=== PATIENT | male | born 1965 | race Caucasian/White ===

== ENCOUNTER 2021-01-13 08:51 | Observation (INO) | payer MEDICARE ==
[2021-01-13 09:15] VITALS: BMI 32.1
[2021-01-13] MEDS ORDERED: FLU VACC QS2021-22(6MOS UP)/PF 60 MCG/0.5 ML SYRINGE IM ONE (10:15)
[2021-01-13] MEDS ORDERED: hydrALAZINE 20 MG/ML VIAL SLOW IVP PRN (10:28)
[2021-01-13] MEDS ORDERED: Labetalol HCl 100 MG/20 ML VIAL SLOW IVP PRN (10:28)
[2021-01-13] MEDS ORDERED: Ondansetron ODT 4 MG TAB PO PRN (10:31)
[2021-01-13] MEDS ORDERED: HumaLOG 300 UNITS/3 ML VIAL SC PRN (10:31)
[2021-01-13] MEDS ORDERED: Dextrose 50% Abboject 50 ML SYRINGE SLOW IVP PRN (10:31)
[2021-01-13] MEDS ORDERED: Acetaminophen 325 MG TAB PO PRN (10:31)
[2021-01-13] MEDS ORDERED: Senokot S 8.6-50 MG TAB PO PRN (10:31)
[2021-01-13] MEDS ORDERED: Dextrose 5% in Water 1,000 ML IV PRN (10:31)
[2021-01-13] MEDS ORDERED: Aspirin 81 mg Enteric Coated Tablet PO SCH (10:45)
[2021-01-13 11:20] LABS: Amphetamine Not Detected (NotDetected); Barbiturates Screen Not Detected (NotDetected); Benzodiazepine Screen Not Detected (NotDetected); Cocaine Metabolite Screen Not Detected (NotDetected); Methadone Not Detected (NotDetected); Methamphetamine Not Detected (NotDetected); Opiate Screen Detected (NotDetected); Oxycodone Screen Not Detected (NotDetected); Phencyclidine (PCP) Not Detected (NotDetected); THC/Cannabinoid Screen Not Detected (NotDetected); Tricyclic Screen Not Detected (NotDetected)
[2021-01-13] MEDS: HumaLOG 300 UNITS/3 ML VIAL SC PRN ×2 (12:24→17:02)
[2021-01-13] MEDS ORDERED: Clopidogrel Bisulfate 300 MG TAB PO SCH (12:45)
[2021-01-13] MEDS: Famotidine 20 MG TAB PO SCH (19:49)
[2021-01-14 06:16] LABS: Anion Gap 11 mmol/L (10-20); BUN (Urea Nitrogen) 20 mg/dL (8.4-25.7); Calc. Creatinine Clearance 64 mL/min (70-130); Calcium 9.3 mg/dL (7.8-10.44); Carbon Dioxide 23 mmol/L (22-29); Cardiac Risk 4.1 (Less than 4.5); Chloride 109 mmol/L (98-107); Cholesterol 148 mg/dl (< 200 Desired); Glucose 210 mg/dL (70-105); HDL Cholesterol 36 mg/dL (>60 Neg Risk); LDL Cholesterol, Calculated 67 mg/dL; Magnesium 2.1 mg/dL (1.6-2.6); Potassium 4.6 mmol/L (3.5-5.1); Sodium 138 mmol/L (136-145); Triglycerides 224 mg/dL (Less than 150)
[2021-01-14 06:20] LABS: #Basophils 0.1 10x3/uL (0.0-0.2); #Eosinphils 0.3 10x3/uL (0.0-0.5); #Monocytes 0.5 10x3/uL (0.0-1.1); #Neutrophils 2.9 10x3/uL (1.5-8.4); %Basophils 1.2 % (0.0-2.0); %Lymphocytes 33.4 % (18.0-47.0); %Monocytes 9.1 % (0.0-10.0); %Neutrophils 50.9 % (40.0-75.0); Hemoglobin 12.5 g/dL (13.5-17.5); Mean Corpuscular HGB CONC 34.1 g/dL (32.0-36.0); Mean Corpuscular Hemoglobin 28.2 pg (27.0-33.0); Mean Corpuscular Volume 82.8 fl (81.2-95.1); Mean Platelet Volume 9.8 fl (7.4-10.4); Platelet Count 262 10x3/uL (150-450); Red Blood Cell (RBC) Count 4.43 10x6/uL (4.32-5.72); White Blood Cell (WBC) Count 5.6 10x3/uL (3.5-10.5)
[2021-01-14 06:25] VITALS: TEMP 97
[2021-01-14 06:43] LABS: Thyroid Stimulating Hormone 1.046 uIU/mL (0.35-4.94)
[2021-01-14 06:44] LABS: Syphilis Antibody Nonreactive (Nonreactive); Syphilis Antibody Index 0.28 S/CO (<1.00 Non-Reactive)
[2021-01-14] MEDS: Famotidine 20 MG TAB PO SCH (07:19)
[2021-01-14 07:24] VITALS: BP 158/74
[2021-01-14] MEDS ORDERED: Lisinopril 20 MG TAB PO SCH (09:00)
[2021-01-14] MEDS ORDERED: Clopidogrel Bisulfate 75 MG TAB PO SCH (09:00)
[2021-01-14] MEDS ORDERED: Aspirin 81 mg Enteric Coated Tablet PO SCH ×2 (09:00)
[2021-01-14] MEDS ORDERED: Atorvastatin Calcium 20 MG TAB PO SCH (09:00)
[2021-01-14 11:21] LABS: Hemoglobin A1c 9.6 % (4.0-6.0)
== END 2021-01-14 11:02 | disposition home or self-care (01) ==
LOC: CSHTELE 08:51
PROVIDERS: ADMIT Student in an Organized Health Care Education/Training Program; ATTEND Nurse Practitioner Family
DX: I63.81 Other cerebral infarction due to occlusion or stenosis of small artery (principal); I10 Essential (primary) hypertension; S99.921A Unspecified injury of right foot, initial encounter; W18.30XA Fall on same level, unspecified, initial encounter; Y93.9 Activity, unspecified; Y92.009 Unspecified place in unspecified non-institutional (private) residence as the place of occurrence of the external cause; E11.42 Type 2 diabetes mellitus with diabetic polyneuropathy; E11.319 Type 2 diabetes mellitus with unspecified diabetic retinopathy without macular edema; E78.5 Hyperlipidemia, unspecified; E11.36 Type 2 diabetes mellitus with diabetic cataract; H26.9 Unspecified cataract; H54.8 Legal blindness, as defined in USA; F17.220 Nicotine dependence, chewing tobacco, uncomplicated; Z79.82 Long term (current) use of aspirin; Z79.84 Long term (current) use of oral hypoglycemic drugs; Z79.899 Other long term (current) drug therapy
CPT/HCPCS: 70551; 73630; 80048; 80061; 80306; 82607; 82746; 82962 ×2; 83036; 83735; 84443; 85025; 86780; 93306; 93880; 97116; 97139 ×4; G0378 ×2; 36416